=== PATIENT | female | born 1955 | race Caucasian/White ===

== ENCOUNTER → 2017-04-23 | Outpatient (CLI) | payer OTHER ==
[~2017-04-23] MED LIST: IOPAMIDOL (ISOVUE-300) 100 ML BTL ONE
== END ==
LOC: CIMAGING 13:28
PROVIDERS: ATTEND Registered Nurse Maternal Newborn
DX: R91.1 Solitary pulmonary nodule (principal)
CPT/HCPCS: 71260-PO; Q9967